=== PATIENT | male | born 1980 | race Caucasian/White ===

== ENCOUNTER 2020-06-03 19:04 | Inpatient (IN) | payer OTHER ==
[2020-06-03 20:06] VITALS: BMI 25.2
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
[2020-06-03] MEDS ORDERED: MENTHOL/PHENOL 1 EACH UD MM PRN (21:08)
[2020-06-03] MEDS ORDERED: BISMUTH SUBSALICYLATE 524 MG/30 ML UD PO PRN (21:08)
[2020-06-03] MEDS ORDERED: NALOXONE HCL 0.4 MG/ML VIAL IM PRN (21:08)
[2020-06-03] MEDS ORDERED: P-EPHED 60MG/TRIPROLIDI 2.5MG TABLET PO PRN (21:08)
[2020-06-03] MEDS ORDERED: hydrOXYzine PAMOATE 25 MG CAPSULE (FP) PO PRN (21:08)
[2020-06-03] MEDS ORDERED: DICYCLOMINE HCL 10 MG CAPSULE PO PRN (21:08)
[2020-06-03] MEDS ORDERED: METHOCARBAMOL 500 MG TABLET PO PRN (21:08)
[2020-06-03] MEDS ORDERED: guaiFENesin 200 MG/10 ML 10 ML UNIT-DOSE CUPS PO PRN (21:08)
[2020-06-03] MEDS ORDERED: chlordiazePOXIDE HCL 25 MG CAPSULE PO PRN (21:08)
[2020-06-03] MEDS ORDERED: IBUPROFEN 400 MG TABLET (FP) PO PRN (21:08)
[2020-06-03] MEDS ORDERED: MAGNESIUM CITRATE 300 ML BOTTLE PO PRN (21:08)
[2020-06-03] MEDS ORDERED: MAG HYDROX/AL HYDROX/SIMETH 30 ML UNIT-DOSE CUP PO PRN (21:08)
[2020-06-03] MEDS ORDERED: cloNIDine HCL 0.1 MG TABLET PO PRN (21:08)
[2020-06-03] MEDS ORDERED: ACETAMINOPHEN 325 MG TABLET (FP) PO PRN ×2 (21:08)
[2020-06-03] MEDS ORDERED: ONDANSETRON *ODT* 4 MG TABLET SL PRN (21:08)
[2020-06-03] MEDS ORDERED: NICOTINE POLACRILEX 2 MG GUM BUC PRN (21:08)
[2020-06-03] MEDS ORDERED: MAGNESIUM HYDROX 2400MG/30ML ORAL SUSPENSION 30 ML CUP PO PRN (21:08)
[2020-06-03] MEDS ORDERED: METHADONE HCL 10 MG TABLET (FOR DETOX USE ONLY) PO ONE (22:15)
[2020-06-03] MEDS: MELATONIN 5 MG TABLETS PO SCH (22:52)
[2020-06-03] MEDS: chlordiazePOXIDE HCL 25 MG CAPSULE PO SCH (22:52)
[2020-06-03] MEDS: THIAMINE HCL 100 MG TABLET (FP) PO SCH (22:53)
[2020-06-04] MEDS: chlordiazePOXIDE HCL 25 MG CAPSULE PO SCH ×4 (05:25→22:17)
[2020-06-04] MEDS ORDERED: METHADONE HCL 10 MG TABLET (FOR DETOX USE ONLY) ONE (08:44)
[2020-06-04] MEDS ORDERED: METHADONE HCL 5 MG TABLET (FOR DETOX USE ONLY) ONE (08:44)
[2020-06-04] MEDS ORDERED: METHADONE (DETOX) 20 MG, METHADONE (DETOX) 5 MG PO ONE (10:00)
[2020-06-04] MEDS: NICOTINE 14 MG/24 HOURS TOPICAL PATCH TD SCH (10:12)
[2020-06-04] MEDS: PRENATAL VITAMINS W/ FOLIC ACID TABLET (FP) PO SCH (10:12)
--- NOTE | 2020-06-04 10:14 | EKG ---
Test Reason : Blood Pressure : / mmHG Vent. Rate : 094 BPM Atrial Rate : 094 BPM P-R Int : 120 ms QRS Dur : 084 ms QT Int : 338 ms P-R-T Axes : 076 065 052 degrees QTc Int : 422 ms NORMAL SINUS RHYTHM NORMAL ECG NO PREVIOUS ECGS AVAILABLE Confirmed by MD Hannah, Quan ([id number]) on 06/04/2020 10:14:15 AM Referred By: Declan Eldridge Confirmed By:Quan Young MD
[2020-06-04 10:53] LABS: HEMATOCRIT 41.1 % (35.4-49); HEMOGLOBIN 13.7 GM/dL (11.7-16.9); MCH 29.3 pg (25.7-33.7); MCHC 33.3 g/dl (32.0-35.9); MEAN PLT VOLUME 8.1 fl (7.5-11.1); PLATELET COUNT 326 K/MM3 (134-434); RBC 4.67 M/mm3 (4.00-5.60); RDW 13.5 % (11.9-15.9); WHITE BLOOD COUNT 4.5 K/mm3 (4.0-10.0)
[2020-06-04 10:57] LABS: ALBUMIN 3.3 g/dl (3.4-5.0); BILIRUBIN,TOTAL 0.4 mg/dL (0.2-1); BLOOD UREA NITROGEN 9.8 mg/dL (7-18); CALCIUM 8.9 mg/dL (8.5-10.1); CREATININE 0.6 mg/dL (0.55-1.3); POTASSIUM 4.4 mmol/L (3.5-5.1)
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
--- NOTE | 2020-06-04 13:30 | PN ---
[facility] CIWA - CIWA Score Nausea/Vomitin-No Nausea/No Vomiting Muscle Tremors: 2 Anxiety: 2 Agitation: 2 Paroxysmal Sweats: 2 Orientation: 0-Oriented Tacttile Disturbances: 0-None Auditory Disturbances: 0-None Visual Disturbances: 0-None Headache: 0-None Present CIWA-Ar Total Score: 8 [facility] COWS - Scale Resting Pulse: 1= [place] 81-100 Sweatin= Chills/Flushing Restless Observation: 1= Difficult to Sit Still Pupil Size: 0= Normal to Room Light Bone or Joint Aches: 1= Mild Discomfort Runny Nose/ Eye Tearin= Nasal Congestion GI Upset > 30mins: 0= None Tremor Observation of Outstretched Hands: 1= Tremor [place], Not Seen Yawning Observation: 2= >3x During Session Anxiety or Irritability: 2=Irritable/Anxious Goose Flesh Skin: 0=Smooth Skin COWS Score: 10 S Progress Note (SOAP) Subjective: sweats shakes body aches interrupted sleep agitation Objective: 06/04/20 13:28 Vital Signs Temperature 97.9 06/04/20 8:21 Pulse Rate 65 06/04/20 8:21 Respiratory Rate 20 06/04/20 8:21 Blood Pressure 135/70 06/04/20 8:21 O2 Sat by Pulse Oximetry (%) 98 06/04/20 8:21 Laboratory Tests 06/03/20 06/04/20 06/04/20 07:00 07:00 07:15 WBC 4.5 RBC 4.67 Hgb 13.7 Hct 41.1 MCV 88.0 MCH 29.3 MCHC 33.3 RDW 13.5 Plt Count 326 MPV 8.1 Sodium 139 Potassium 4.4 Chloride 104 Carbon Dioxide 30 Anion Gap 4 L BUN 9.8 Creatinine 0.6 Est GFR (CKD-EPI)AfAm 143.73 Est GFR (CKD-EPI)NonAf 124.01 Random Glucose 81 Calcium 8.9 Total Bilirubin 0.4 AST 21 ALT 27 Alkaline Phosphatase 92 Total Protein 7.0 Albumin 3.3 L Syphilis Serology Non-reactive labs noted aaox3 ambulating no acute distress Assessment: 06/04/20 13:29 withdrawals Plan: continue detox
[2020-06-04] MEDS: THIAMINE HCL 100 MG TABLET (FP) PO SCH (22:17)
[2020-06-04] MEDS: SUVOREXANT 10 MG TABLET PO PRN (22:19)
[2020-06-04] MEDS: MELATONIN 5 MG TABLETS PO SCH (23:39)
[2020-06-05] MEDS: chlordiazePOXIDE HCL 25 MG CAPSULE PO SCH ×4 (06:06→22:16)
[2020-06-05] MEDS ORDERED: METHADONE HCL 10 MG TABLET (FOR DETOX USE ONLY) PO ONE (10:00)
[2020-06-05] MEDS: PRENATAL VITAMINS W/ FOLIC ACID TABLET (FP) PO SCH (10:32)
[2020-06-05] MEDS: NICOTINE 14 MG/24 HOURS TOPICAL PATCH TD SCH (10:32)
--- NOTE | 2020-06-05 13:07 | PN ---
[facility] CIWA - CIWA Score Nausea/Vomitin-No Nausea/No Vomiting Muscle Tremors: 2 Anxiety: 1-Mildly Anxious Agitation: 2 Paroxysmal Sweats: 1-Minimal Palms Moist Orientation: 0-Oriented Tacttile Disturbances: 0-None Auditory Disturbances: 0-None Visual Disturbances: 0-None Headache: 1-Very Mild CIWA-Ar Total Score: 7 [facility] COWS - Scale Resting Pulse: 1= [place] 81-100 Sweatin= Chills/Flushing Restless Observation: 1= Difficult to Sit Still Pupil Size: 0= Normal to Room Light Bone or Joint Aches: 1= Mild Discomfort Runny Nose/ Eye Tearin= None GI Upset > 30mins: 0= None Tremor Observation of Outstretched Hands: 1= Tremor [place], Not Seen Yawning Observation: 1= 1-2x During Session Anxiety or Irritability: 2=Irritable/Anxious Goose Flesh Skin: 0=Smooth Skin COWS Score: 8 [facility] Progress Note (SOAP) Subjective: sweats shakes body aches interrupted sleep restless agitation poor appetite Objective: 06/05/20 13:06 Vital Signs Temperature 98.4 F 06/05/20 08:40 Pulse Rate 96 H 06/05/20 08:40 Respiratory Rate 16 06/05/20 08:40 Blood Pressure 117/78 06/05/20 08:40 O2 Sat by Pulse Oximetry (%) 95 06/05/20 06:00 Laboratory Tests 06/03/20 06/03/20 06/04/20 07:00 22:15 07:00 WBC RBC Hgb Hct MCV MCH MCHC RDW Plt Count MPV Sodium 139 Potassium 4.4 Chloride 104 Carbon Dioxide 30 Anion Gap 4 L BUN 9.8 Creatinine 0.6 Est GFR (CKD-EPI)AfAm 143.73 Est GFR (CKD-EPI)NonAf 124.01 Random Glucose 81 Calcium 8.9 Total Bilirubin 0.4 AST 21 ALT 27 Alkaline Phosphatase 92 Total Protein 7.0 Albumin 3.3 L Syphilis Serology Non-reactive COVID-19 ([facility]) Not detected 06/04/20 07:15 WBC 4.5 RBC 4.67 Hgb 13.7 Hct 41.1 MCV 88.0 MCH 29.3 MCHC 33.3 RDW 13.5 Plt Count 326 MPV 8.1 Sodium Potassium Chloride Carbon Dioxide Anion Gap BUN Creatinine Est GFR (CKD-EPI)AfAm Est GFR (CKD-EPI)NonAf Random Glucose Calcium Total Bilirubin AST ALT Alkaline Phosphatase Total Protein Albumin Syphilis Serology COVID-19 ([facility]) labs noted aaox3 ambulating no acute distress Assessment: 06/05/20 13:07 withdrawals Plan: continue detox motrin/tylenol prn ensure bid
[2020-06-05] MEDS: THIAMINE HCL 100 MG TABLET (FP) PO SCH (22:16)
[2020-06-05] MEDS: SUVOREXANT 10 MG TABLET PO PRN (22:17)
[2020-06-05] MEDS: MELATONIN 5 MG TABLETS PO SCH (22:17)
[2020-06-06] MEDS ORDERED: chlordiazePOXIDE HCL 10 MG CAPSULE PO PRN
[2020-06-06] MEDS: chlordiazePOXIDE HCL 10 MG CAPSULE PO SCH ×4 (05:57→22:28)
[2020-06-06] MEDS ORDERED: METHADONE HCL 5 MG TABLET (FOR DETOX USE ONLY) ONE (09:26)
[2020-06-06] MEDS ORDERED: METHADONE HCL 10 MG TABLET (FOR DETOX USE ONLY) ONE (09:26)
[2020-06-06] MEDS ORDERED: METHADONE (DETOX) 10 MG, METHADONE (DETOX) 5 MG PO ONE (10:00)
[2020-06-06] MEDS: PRENATAL VITAMINS W/ FOLIC ACID TABLET (FP) PO SCH (10:31)
[2020-06-06] MEDS: NICOTINE 14 MG/24 HOURS TOPICAL PATCH TD SCH (10:32)
--- NOTE | 2020-06-06 13:37 | PN ---
S CIWA - CIWA Score Nausea/Vomitin-No Nausea/No Vomiting Muscle Tremors: 2 Anxiety: 1-Mildly Anxious Agitation: 1-Slight > Activity Paroxysmal Sweats: 2 Orientation: 0-Oriented Tacttile Disturbances: 0-None Auditory Disturbances: 0-None Visual Disturbances: 0-None Headache: 0-None Present CIWA-Ar Total Score: 6 [facility] COWS - Scale Resting Pulse: 1= [place] 81-100 Sweatin= Chills/Flushing Restless Observation: 1= Difficult to Sit Still Pupil Size: 0= Normal to Room Light Bone or Joint Aches: 1= Mild Discomfort Runny Nose/ Eye Tearin= None GI Upset > 30mins: 0= None Tremor Observation of Outstretched Hands: 1= Tremor [place], Not Seen Yawning Observation: 1= 1-2x During Session Anxiety or Irritability: 1=Feels Anxious/Irritable Goose Flesh Skin: 0=Smooth Skin COWS Score: 7 S Progress Note (SOAP) Subjective: sweats body aches interrupted sleep agitation Objective: 06/06/20 13:36 Vital Signs Temperature 98.1 F 06/06/20 12:27 Pulse Rate 111 H 06/06/20 12:27 Respiratory Rate 18 06/06/20 12:27 Blood Pressure 135/56 L 06/06/20 12:27 O2 Sat by Pulse Oximetry (%) 98 06/06/20 12:27 Laboratory Tests 06/03/20 06/03/20 06/04/20 07:00 22:15 07:00 WBC RBC Hgb Hct MCV MCH MCHC RDW Plt Count MPV Sodium 139 Potassium 4.4 Chloride 104 Carbon Dioxide 30 Anion Gap 4 L BUN 9.8 Creatinine 0.6 Est GFR (CKD-EPI)AfAm 143.73 Est GFR (CKD-EPI)NonAf 124.01 Random Glucose 81 Calcium 8.9 Total Bilirubin 0.4 AST 21 ALT 27 Alkaline Phosphatase 92 Total Protein 7.0 Albumin 3.3 L Syphilis Serology Non-reactive COVID-19 ([facility]) Not detected 06/04/20 07:15 WBC 4.5 RBC 4.67 Hgb 13.7 Hct 41.1 MCV 88.0 MCH 29.3 MCHC 33.3 RDW 13.5 Plt Count 326 MPV 8.1 Sodium Potassium Chloride Carbon Dioxide Anion Gap BUN Creatinine Est GFR (CKD-EPI)AfAm Est GFR (CKD-EPI)NonAf Random Glucose Calcium Total Bilirubin AST ALT Alkaline Phosphatase Total Protein Albumin Syphilis Serology COVID-19 ([facility]) labs noted aaox3 ambulating no acute distress Assessment: 06/06/20 13:36 withdrawals Plan: continue detox
[2020-06-06] MEDS: SUVOREXANT 10 MG TABLET PO PRN (22:27)
[2020-06-06] MEDS: THIAMINE HCL 100 MG TABLET (FP) PO SCH (22:28)
[2020-06-06] MEDS: MELATONIN 5 MG TABLETS PO SCH (22:28)
[2020-06-07] MEDS ORDERED: chlordiazePOXIDE HCL 10 MG CAPSULE PO SCH (05:00)
[2020-06-07 09:43] VITALS: BP 126/52; PULSE 94; TEMP 97.1
[2020-06-07] MEDS ORDERED: METHADONE HCL 10 MG TABLET (FOR DETOX USE ONLY) PO ONE (10:00)
[2020-06-07] MEDS: PRENATAL VITAMINS W/ FOLIC ACID TABLET (FP) PO SCH (10:34)
[2020-06-07] MEDS: NICOTINE 14 MG/24 HOURS TOPICAL PATCH TD SCH (10:34)
--- NOTE | 2020-06-07 11:27 | PN ---
S CIWA - CIWA Score Nausea/Vomitin-No Nausea/No Vomiting Muscle Tremors: 2 Anxiety: 1-Mildly Anxious Agitation: 1-Slight > Activity Paroxysmal Sweats: No Perspiration Orientation: 0-Oriented Tacttile Disturbances: 0-None Auditory Disturbances: 0-None Visual Disturbances: 0-None Headache: 0-None Present CIWA-Ar Total Score: 4 [facility] COWS - Scale Resting Pulse: 1= [place] 81-100 Sweatin= Chills/Flushing Restless Observation: 0= Sits Still Pupil Size: 0= Normal to Room Light Bone or Joint Aches: 1= Mild Discomfort Runny Nose/ Eye Tearin= Nasal Congestion GI Upset > 30mins: 0= None Tremor Observation of Outstretched Hands: 0= None Yawning Observation: 0= None Anxiety or Irritability: 1=Feels Anxious/Irritable Goose Flesh Skin: 0=Smooth Skin COWS Score: 5 S Progress Note (SOAP) Subjective: sweats agitation Objective: 06/07/20 11:23 Vital Signs Temperature 97.1 F L 06/07/20 08:40 Pulse Rate 94 H 06/07/20 08:40 Respiratory Rate 18 06/07/20 08:40 Blood Pressure 126/52 L 06/07/20 08:40 O2 Sat by Pulse Oximetry (%) 95 06/07/20 08:40 Laboratory Tests 06/03/20 06/03/20 06/04/20 07:00 22:15 07:00 WBC RBC Hgb Hct MCV MCH MCHC RDW Plt Count MPV Sodium 139 Potassium 4.4 Chloride 104 Carbon Dioxide 30 Anion Gap 4 L BUN 9.8 Creatinine 0.6 Est GFR (CKD-EPI)AfAm 143.73 Est GFR (CKD-EPI)NonAf 124.01 Random Glucose 81 Calcium 8.9 Total Bilirubin 0.4 AST 21 ALT 27 Alkaline Phosphatase 92 Total Protein 7.0 Albumin 3.3 L Syphilis Serology Non-reactive COVID-19 ([facility]) Not detected 06/04/20 07:15 WBC 4.5 RBC 4.67 Hgb 13.7 Hct 41.1 MCV 88.0 MCH 29.3 MCHC 33.3 RDW 13.5 Plt Count 326 MPV 8.1 Sodium Potassium Chloride Carbon Dioxide Anion Gap BUN Creatinine Est GFR (CKD-EPI)AfAm Est GFR (CKD-EPI)NonAf Random Glucose Calcium Total Bilirubin AST ALT Alkaline Phosphatase Total Protein Albumin Syphilis Serology COVID-19 ([facility]) labs noted aaox3 ambulating no acute distress Assessment: 06/07/20 11:25 withdrawal sx Plan: continue detox d/c in am
--- NOTE | 2020-06-07 11:40 | PN ---
[facility] Progress Note Note: pt states he feels better and wants to go home.
--- NOTE | 2020-06-07 12:20 | DS ---
[facility] Detox Discharge Summary Admission Date: 06/03/20 Discharge Date: 06/07/20 - History Present History: Alcohol Dependence - Physical Exam Results Vital Signs: Vital Signs Temperature 97.1 F L 06/07/20 08:40 Pulse Rate 94 H 06/07/20 08:40 Respiratory Rate 18 06/07/20 08:40 Blood Pressure 126/52 L 06/07/20 08:40 O2 Sat by Pulse Oximetry (%) 95 06/07/20 08:40 Pertinent Admission Physical Exam Findings: Vital Signs Temperature 97.1 F L 06/07/20 08:40 Pulse Rate 94 H 06/07/20 08:40 Respiratory Rate 18 06/07/20 08:40 Blood Pressure 126/52 L 06/07/20 08:40 O2 Sat by Pulse Oximetry (%) 95 06/07/20 08:40 Laboratory Tests 06/03/20 06/03/20 06/04/20 07:00 22:15 07:00 WBC RBC Hgb Hct MCV MCH MCHC RDW Plt Count MPV Sodium 139 Potassium 4.4 Chloride 104 Carbon Dioxide 30 Anion Gap 4 L BUN 9.8 Creatinine 0.6 Est GFR (CKD-EPI)AfAm 143.73 Est GFR (CKD-EPI)NonAf 124.01 Random Glucose 81 Calcium 8.9 Total Bilirubin 0.4 AST 21 ALT 27 Alkaline Phosphatase 92 Total Protein 7.0 Albumin 3.3 L Syphilis Serology Non-reactive COVID-19 ([facility]) Not detected 06/04/20 07:15 WBC 4.5 RBC 4.67 Hgb 13.7 Hct 41.1 MCV 88.0 MCH 29.3 MCHC 33.3 RDW 13.5 Plt Count 326 MPV 8.1 Sodium Potassium Chloride Carbon Dioxide Anion Gap BUN Creatinine Est GFR (CKD-EPI)AfAm Est GFR (CKD-EPI)NonAf Random Glucose Calcium Total Bilirubin AST ALT Alkaline Phosphatase Total Protein Albumin Syphilis Serology COVID-19 ([facility]) aaox3 ambulating no acute distress lungs CTA - Treatment Hospital Course: Detox Protocol Followed, Detoxed Safely, Responded well, Discharged Condition Good, Rehab Referral Accepted - Medication Discharge Medications: Ambulatory Orders NK [No Known Home Medication] 06/03/20 - Diagnosis (1) Alcohol dependence with withdrawal, uncomplicated Current Visit: Yes Status: Acute (2) Depressed affect Current Visit: Yes Status: Acute (3) IVDU (intravenous drug user) Current Visit: Yes Status: Acute (4) Opioid dependence with withdrawal Current Visit: Yes Status: Acute (5) Substance-induced sleep disorder Current Visit: Yes Status: Acute (6) HCV (hepatitis C virus) Current Visit: Yes Status: Chronic Qualifiers: Viral hepatitis chronicity: chronic Hepatic coma status: without hepatic coma Qualified Code(s): B18.2 - Chronic viral hepatitis C (7) Hepatitis C Current Visit: Yes Status: Chronic (8) Mood disorder Current Visit: Yes Status: Chronic (9) Nicotine dependence Current Visit: Yes Status: Chronic (10) Yi speaking patient Current Visit: Yes Status: Chronic (11) Homeless Current Visit: Yes Status: Suspected (12) Bipolar disorder Current Visit: Yes Status: Ruled-out (13) Substance induced mood disorder Current Visit: Yes Status: Ruled-out - AMA Did Patient Leave Against Medical Advice: No
[2020-06-08] MEDS ORDERED: chlordiazePOXIDE HCL 10 MG CAPSULE PO ONE (05:00)
[2020-06-08] MEDS ORDERED: METHADONE HCL 5 MG TABLET (FOR DETOX USE ONLY) PO ONE (06:00)
== END 2020-06-07 10:13 | disposition home or self-care (01) | DRG 773 ==
LOC: YASAS 19:04 → Y6N 22:03
PROVIDERS: ADMIT Allergy & Immunology; ATTEND Allergy & Immunology
PROC: HZ2ZZZZ Detoxification Services for Substance Abuse Treatment (ICD-10-PCS; principal; 2020-06-03)
DX: F10.230 Alcohol dependence with withdrawal, uncomplicated (principal); F11.23 Opioid dependence with withdrawal; F17.210 Nicotine dependence, cigarettes, uncomplicated; F19.282 Other psychoactive substance dependence with psychoactive substance-induced sleep disorder; F39 Unspecified mood [affective] disorder; B18.2 Chronic viral hepatitis C; R45.89 Other symptoms and signs involving emotional state; Z59.0 Homelessness
CPT/HCPCS: 36415; 80053; 85027; 86780; 93005; 93010; U0003